=== PATIENT | male | born 1945 | race African-American/Black ===

== ENCOUNTER 2018-05-26 12:02 | Emergency (ER) | payer MEDICARE ==
[2018-05-26] MEDS ORDERED: Bupivacaine 0.25% 10 ML VIAL ONE (12:37)
[2018-05-26] MEDS ORDERED: Adacel (T-DAP) 0.5 ML VIAL ONE (12:37)
[2018-05-26] MEDS ORDERED: Lidocaine 1% (PF) 30 ML VIAL ONE ×2 (12:37→13:38)
[2018-05-26] MEDS ORDERED: Lidocaine 1% PF 5 ML VIAL ONE (13:36)
[2018-05-26] MEDS ORDERED: Bacitracin Zinc 1 Packet ONE (13:58)
--- NOTE | 2018-05-26 14:41 | RAD ---
RIGHT 4TH FINGER 3 VIEWS: HISTORY: A 73-year-old male with a history of deformity, injury, patient caught finger in a folding chair. FINDINGS: There is soft tissue and bony avulsion of the distal 4th finger including irregular fracture of the d istal aspect of the distal phalanx. Significant arthrosis changes. IMPRESSION: Extensive soft tissue and bony avulsion injury of the distal aspect of the distal phalanx of the 4th finger. The tuft of the distal phalanx of the 4th finger is no longer present. POS: QUINCY
--- NOTE | 2018-05-26 15:32 | OP ---
DATE OF PROCEDURE: 05/26/2018 PLACE OF PROCEDURE: [facility] Emergency Room. INDICATIONS: Mr. Flores is a 73-year-old male who has rheumatoid arthritis. He was sitting in a fuchs den chair. He was getting up and the wooden chair pinched and partially amputated the tip of the rig ht ring finger, took the entire nail off, it took almost half of the nail bed off and broke the dista l phalanx. DESCRIPTION OF PROCEDURE: A digital block was performed using 1% lidocaine plain at the base of the ring finger. The ring finger and the open wound was cleansed with Betadine and then sterile saline. The patient had a mostly oblique injury across the mid portion of the nail. Scissors were used to m jose francisco the nail bed and underlying distal phalanx more transverse. The wound was then sequentially clos ed using 3-0 Rapide. Excess tissue was removed as needed and the wound was completely closed. Steri le dressing was applied. The patient has been taking antibiotics, because of a wound that he has had chronically on the right ankle, so this will cover him for any possible infection on the ring finger . Also, I wrote a prescription for Tramadol 50 mg 1-2 every 6 hours as needed for pain, #60 with 1 r efill. Follow up in my office next Monday, which is 6 days.
== END 2018-05-26 14:13 | disposition home or self-care (01) ==
LOC: ERS 12:02
DX: S68.124A Partial traumatic metacarpophalangeal amputation of right ring finger, initial encounter (principal); M10.9 Gout, unspecified; I10 Essential (primary) hypertension; W23.0XXA Caught, crushed, jammed, or pinched between moving objects, initial encounter
CPT/HCPCS: 12001; 90471; 90715; J2001; S0020

== ENCOUNTER 2018-05-26 16:23 | Emergency (ER) | payer MEDICARE | END 2018-05-26 17:31 | disposition home or self-care (01) | LOC: ERS 16:23 | DX: S61.214D Laceration without foreign body of right ring finger without damage to nail, subsequent encounter (principal); I10 Essential (primary) hypertension | CPT/HCPCS: 99282 ==

== ENCOUNTER 2018-07-24 06:37 | Inpatient (IN) | payer MEDICARE ==
[2018-07-24] MEDS ORDERED: Neomycin-Polymyxin 1 ML AMP ONE ×2 (06:43→09:21)
[2018-07-24 07:27] LABS: Hemoglobin 9.1 g/dL (14.0-18.0); Mean Corpuscular HGB CONC 30.4 g/dL (32.0-36.0); Mean Corpuscular Hemoglobin 26.4 pg (27.0-31.0); Mean Corpuscular Volume 86.6 fL (78.0-98.0); Mean Platelet Volume 8.2 fL (7.4-10.4); Platelet Count 331 thou/uL (130-400); RBC Distribution Width 17.1 % (11.5-14.5); Red Blood Cell (RBC) Count 3.46 mill/uL (4.70-6.10); White Blood Cell (WBC) Count 10.4 thou/uL (4.8-10.8)
[2018-07-24 07:46] LABS: Anion Gap 14 mmol/L (10-20); BUN (Urea Nitrogen) 15 mg/dL (8.4-25.7); Calc. Creatinine Clearance 80 mL/min (70-130); Calcium 9.3 mg/dL (7.8-10.44); Carbon Dioxide 24 mmol/L (23-31); Chloride 100 mmol/L (98-107); Estimated GFR-MDRD Greater than 90; Glucose 89 mg/dL (83-110); Potassium 4.3 mmol/L (3.5-5.1); Sodium 134 mmol/L (136-145)
[2018-07-24] MEDS ORDERED: Fentanyl 100 MCG/2 ML VIAL ONE ×4 (07:48→12:00)
[2018-07-24] MEDS ORDERED: CEFAZOLIN 2 GM/50 ML BAG ONE (07:50)
[2018-07-24] MEDS ORDERED: Bupivacaine 0.25% HCL 30 ML VIAL ONE (09:11)
[2018-07-24] MEDS ORDERED: Promethazine HCl 25 MG/ML VIAL IM PRN (10:11)
[2018-07-24] MEDS ORDERED: Promethazine HCl 25 MG/ML VIAL SLOW IVP PRN (10:11)
[2018-07-24] MEDS ORDERED: Ondansetron HCl/PF 4 MG/2 ML Vial IVP PRN (10:11)
[2018-07-24] MEDS ORDERED: Promethazine HCl 25 MG/ML VIAL ONE (10:38)
--- NOTE | 2018-07-24 10:42 | OP ---
DATE OF PROCEDURE: 07/24/2018 PREOPERATIVE DIAGNOSES: Osteomyelitis of the second and third metatarsals and phalanges of the right foot. POSTOPERATIVE DIAGNOSES: Osteomyelitis of the second and third metatarsals and phalanges of the righ t foot. PROCEDURE: Second and third ray amputations of the right foot. SURGEON: Dr. Jensen Cedillo ANESTHESIA: General. TECHNIQUE: The patient was taken to the operating room and placed in supine position. Satisfactory general anesthesia was performed. The right foot, ankle, and leg were sterilely prepped and draped i n usual fashion. After elevating the right lower extremity, tourniquet on the right calf was raised to 250 mmHg. A longitudinal incision was made between the second and third metatarsals up to the seco nd and third toes which had significant purulence and necrotic tissue. Incision was made around to t he lateral base of the great toe and then extended down in the plantar aspect of the foot the same wa y, the incision was made around the lateral aspect of the third toe. Sharp dissection was made down to the second and third metatarsals to the base of the second and third metatarsals. Micro oscillati ng saw was used to cut the second and third metatarsals and the soft tissue was sharply incised and t he third and second rays were excised. The remaining tissue both medially and laterally and deep had a good border, did not appear to have any necrotic tissue. This wound was then copiously irrigated with antibiotic solution using the high speed pit shoveler and then was loosely closed using #1 Prolene in interrupted vertical mattress sutures. A sterile dressing was applied. Tourniquet was released. The patient was awakened, extubated, and transferred to recovery room in stable condition. ESTIMATED BLOOD LOSS: None. COMPLICATIONS: None. TOURNIQUET TIME: 38 minutes. Deep cultures were obtained and sent for Gram stain, culture and sensitivity. We will get Infectious Disease involved as far as appropriate antibiotics.
[2018-07-24] MEDS ORDERED: Morphine 2 MG/ML SYRINGE SLOW IVP PRN (10:47)
[2018-07-24] MEDS ORDERED: Morphine 4 MG/ML VIAL SLOW IVP PRN (10:48)
[2018-07-24] MEDS ORDERED: HYDROcodone/Acetaminophen 10/325 mg Tablet PO PRN (10:48)
[2018-07-24] MEDS ORDERED: Piperacillin/Tazobactam 3.375 GM in Sodium Chloride 0.9% 100 ML IVPB SCH (12:00)
[2018-07-24] MEDS ORDERED: Labetalol HCl 100 MG/20 ML VIAL ONE (12:08)
[2018-07-24] MEDS ORDERED: Labetalol HCl 100 MG/20 ML VIAL SLOW IVP PRN (13:17)
[2018-07-24] MEDS ORDERED: Sodium Chloride 0.9% 1,000 ML IV SCH (13:30)
[2018-07-24] MEDS ORDERED: traMADol HCl 50 MG TAB PO PRN (13:31)
--- NOTE | 2018-07-24 13:41 | EKG ---
Test Reason : PREOP Blood Pressure : / mmHG Vent. Rate : 064 BPM Atrial Rate : 064 BPM P-R Int : 186 ms QRS Dur : 082 ms QT Int : 408 ms P-R-T Axes : 072 -32 -07 degrees QTc Int : 420 ms Normal sinus rhythm Left axis deviation Nonspecific ST abnormality Borderline EKG When compared with ECG of 20-SEP-2008 13:06, No significant change was found Confirmed by DR. Norman SHEIKH ([id number]) on 07/24/2018 1:41:22 PM Referred By: GRANT Confirmed By:DR. Norman SHEIKH
[2018-07-24] MEDS: Vancomycin HCl 1.25 GM in Sodium Chloride 0.9% 250 ML 250 ML IVPB SCH (13:51)
[2018-07-24] MEDS ORDERED: Glycopyrrolate 0.2 MG/ML 5 ML SYRINGE ONE (14:59)
[2018-07-24] MEDS ORDERED: Lidocaine 1% PF 5 ML VIAL ONE (14:59)
[2018-07-24] MEDS ORDERED: PROPOFOL 200 MG/20 ML VIAL ONE (14:59)
[2018-07-24] MEDS ORDERED: Ondansetron PF 4 MG/2 ML Vial ONE (14:59)
[2018-07-24] MEDS: Piperacillin/Tazobactam 3.375 GM in Sodium Chloride 0.9% 100 ML IVPB SCH ×2 (15:34→19:20)
[2018-07-24] MEDS: Sodium Chloride 0.9% 1,000 ML IV SCH ×2 (15:35→19:21)
[2018-07-24 17:30] VITALS: BMI 21.9
[2018-07-24] MEDS: Atorvastatin Calcium 10 MG TAB PO SCH (19:20)
--- NOTE | 2018-07-25 00:32 | CON ---
DATE OF CONSULTATION: 07/24/2018 HISTORY OF PRESENT ILLNESS: Mr. Flores is known to me from prior admission to [facility]. A 73-year-old gentleman with history of hypertension, rheumatoid arthritis, severe ankylos is of multiple toes and fingers and peripheral vascular disease with prior angioplasty whom I saw in 03/2018 when he presented with right foot pain and chronic ulcerations with drainage. Amputation was offered and patient declined it. Imaging studies then showed foot x-rays with lateral displacement of the first metatarsophalangeal joint and lateral distal displacement of the first metatarsal joint. Severe degenerative changes and hyperextension deformity of second through fifth metatarsophalangea l joints. MRI of the foot showed osteomyelitis of second metatarsal head and neck and proximal osteo myelitis of the third proximal phalanx base with reactive osteoarthritis of the third metatarsal head and neck. The assessment was longstanding rheumatoid arthritis with severe ankylosis and evidence o f osteomyelitis, right plantar foot aspect with multiple areas of involvement. The patient declined surgical intervention and therefore he had protracted antimicrobial therapy. After that I saw him in the office and discontinued the PICC line and put him on suppressive antimicrobial therapy. Evident ly, now he has presented with persistence of inflammatory changes and Dr. Cedillo performed a surgica l procedure. The operative report has been reviewed and incision was made around the lateral base of the great toe extended down in the plantar aspect of foot. Same way incision made around the latera l aspect of the third toe. Sharp dissection made down the second and third metatarsals to the base o f the second and third metatarsals. The second and third metatarsals were cut and soft tissues were sharply incised. The third and second rays were excised. Remainder of tissue appeared healthy and t he wound was irrigated. Cultures were taken. Previous cultures are noted below. Currently, patient is in good mood. He is feeling dry throat or dry mouth. He is feeling constipated and feels some a bdominal cramps. He likely needs to have a bowel movement. He is having some difficulty with urinat ion as well. PAST MEDICAL HISTORY: History of hypertension, rheumatoid arthritis, osteomyelitis of right foot, pe ripheral vascular disease. PAST SURGICAL HISTORY: Angioplasty of lower extremities few years prior. FAMILY HISTORY: Rheumatoid arthritis. SOCIAL HISTORY: Former smoker, quit drinking many years ago. MEDICATIONS: Had been on meropenem in the past and been discontinued. CURRENT MEDICATIONS: Include acetaminophen, aspirin, atorvastatin, Plavix, metoprolol, Zosyn, and va ncomycin. PHYSICAL EXAMINATION: VITAL SIGNS: T-max 97.2. Other vital signs with elevation in systolic at 190 and diastolic 92. Ple asant, awake, alert and oriented. The foot is wrapped. We did not remove the dressing at this time. The patient has a peripheral IV access and does not have a Collins catheter. HEENT: Ocular movements conjugate. Oral cavity with numerous missing teeth. NECK: Supple, no jugular vein distention. LUNGS: Symmetric air entry without crackles or wheezing. HEART: S1, S2, regular rate without murmurs. ABDOMEN: Soft, mildly distended, no tenderness, no bladder distention. MUSCULOSKELETAL: Patient has multiple areas of ankylosis and joint deformity in both hands and feet associated with his rheumatoid arthritis. NEUROLOGIC: Cognitive function appears to be intact and neurologic examination is nonfocal. LABORATORY DATA: White cell count 10.4, hemoglobin 9.1, platelets 331, sodium 134, creatinine 0.75. Microbiology is pending. Previous microbiology from the medication in March showed Pseudomonas aerug inosa, Myroides species, Staphylococcus epidermides. Myroides was sensitive, Pseudomonas quinolone s ensitive, Staph epi was methicillin sensitive. ASSESSMENT AND PLAN: Rheumatoid arthritis with ankylosis and chronic osteomyelitis of right foot, no w with second and third ray amputations by Dr. Cedillo: The patient has some peripheral vascular dis ease and will be an area of concern. May need to repeat the vascular studies pending clinical progre ss. Continue Zosyn and vancomycin. Monitor results of cultures and results of the pathology for danile lim of clearance assessment. Hopefully, discharge on oral antimicrobial therapy depending on the res ults above.
[2018-07-25] MEDS: Piperacillin/Tazobactam 3.375 GM in Sodium Chloride 0.9% 100 ML IVPB SCH ×4 (01:45→20:38)
[2018-07-25] MEDS: Sodium Chloride 0.9% 1,000 ML IV SCH ×2 (01:48→18:07)
[2018-07-25] MEDS: Clopidogrel Bisulfate 75 MG TAB PO SCH (08:40)
[2018-07-25] MEDS: Ferrous Sulfate 325 MG TAB PO SCH (08:40)
[2018-07-25] MEDS: Multivitamin W/ Minerals 1 TAB PO SCH (08:40)
[2018-07-25] MEDS: Vancomycin HCl 1.25 GM in Sodium Chloride 0.9% 250 ML 250 ML IVPB SCH (11:41)
--- NOTE | 2018-07-25 13:24 | PRG ---
DATE OF SERVICE: 07/25/2018 SUBJECTIVE: Mr. Flores is 1 day status post second and third ray amputations of the right foot. The patient has good pain control. He was unable to empty his bladder and he had in and out catheteriza tion last night. A Collins catheter was placed this morning. The patient states he would like to try to have it taken out, so he can urinate himself. The patient has been afebrile. Vital signs have been stable except for his blood pressure has been a little elevated. His last one was 181/76. The dressing was changed. The incision on the dorsal and plantar aspect of the right foot is in good condition. There is a huge amount of swelling. No active drainage. There was drainage on the dres sing as would be expected. Cultures thus far shows Pseudomonas species. He has on Gram stain moderate gram negative rods and fe w gram positive coccobacilli. We will remove the Collins this afternoon to see if the patient can respond. If not, then we can do in and out catheterization. If he is unable to get this under control, then we will consult Urology. Dr. Solorzano will take care of any antibiotics. We are waiting for further culture reports and sensitiv ities.
[2018-07-25] MEDS: Tamsulosin HCl 0.4 MG CAP PO SCH (18:30)
--- NOTE | 2018-07-25 18:53 | PRG ---
DATE OF SERVICE: 07/25/2018 SUBJECTIVE: Mr. Flores without much pain, developed bladder retention and had to have in and out catheterization and then a Collins catheter. No abdominal pain. PHYSICAL EXAMINATION: VITAL SIGNS: Normal. HEART: S1, S2, regular rate. ABDOMEN: Soft, not distended. LABORATORY DATA: White cell count 10.4, hemoglobin 9.1, creatinine 0.75. Pseudomonas retrieved from the foot swab from the sample pending susceptibility studies. Pathology showed ischemic ulceration. Skin and soft tissue margins viable, acute osteomyelitis. ASSESSMENT AND DISCUSSION: Rheumatoid arthritis, ankylosis and chronic osteo of right foot, status post second and third ray amputations. It looks like the same organisms that had been isolated previously. We will wait for the final results and then discharge on hopefully oral antimicrobial therapy for a few weeks. Otherwise, we will need access. SADAF
[2018-07-25] MEDS: Atorvastatin Calcium 10 MG TAB PO SCH (20:37)
[2018-07-26] MEDS: Piperacillin/Tazobactam 3.375 GM in Sodium Chloride 0.9% 100 ML IVPB SCH ×4 (02:28→20:44)
[2018-07-26] MEDS: Sodium Chloride 0.9% 1,000 ML IV SCH ×3 (02:28→22:08)
[2018-07-26] MEDS: Multivitamin W/ Minerals 1 TAB PO SCH (09:23)
[2018-07-26] MEDS: Ferrous Sulfate 325 MG TAB PO SCH (09:23)
[2018-07-26] MEDS: Clopidogrel Bisulfate 75 MG TAB PO SCH (09:23)
[2018-07-26 11:09] LABS: Vancomycin, Trough 6.6 ug/mL
--- NOTE | 2018-07-26 11:41 | PRG ---
DATE OF SERVICE: 07/26/2018 Mr. Flores is 2 days status post 2nd and 3rd ray amputation of the right foot. The patient reports h e has no pain in the right foot. He is still unable to void and required indwelling catheter. The patient has been afebrile. Vital signs have been stable. We will consult Urology for his urinary retention. Dr. Solorzano is waiting for sensitivities on the cul ture which shows Pseudomonas species. We will continue with IV antibiotics while he is in the hospit al. Gradually increase his activities with therapy.
[2018-07-26] MEDS: Vancomycin HCl 1.25 GM in Sodium Chloride 0.9% 250 ML 250 ML IVPB SCH (12:38)
[2018-07-26 16:09] LABS: Bilirubin Negative (Negative); Blood, Urine Large (Negative); Clarity CLEAR (Clear); Glucose, Urine (Dipstick) Negative (Negative); Leukocyte Moderate (Negative); Nitrite Negative (Negative); Protein, Urine (Dipstick) Negative (Neg-Trace); Specific Gravity, Urine 1.008 (1.002-1.036); Urobilinogen 0.2 mg/dL (0.2-1.0)
[2018-07-26 16:12] LABS: Bacteria/HPF None Seen HPF (None Seen); Hyaline Casts/LPF 0-3 HYALINE CAST LPF (0-3 Hyaline); RBC/HPF GREATER THAN 50-TNTC HPF (0-3); Squamous Epithelial 0-3 HPF (0-3)
[2018-07-26] MEDS: Tamsulosin HCl 0.4 MG CAP PO SCH (20:44)
[2018-07-26] MEDS: Atorvastatin Calcium 10 MG TAB PO SCH (20:44)
[2018-07-26] MEDS: Vancomycin HCl 1 GM in Premix Bag 1 BAG IVPB SCH (23:55)
[2018-07-27] MEDS ORDERED: Tamsulosin HCl 0.4 MG CAP PO SCH (00:15)
[2018-07-27] MEDS: Piperacillin/Tazobactam 3.375 GM in Sodium Chloride 0.9% 100 ML IVPB SCH ×4 (03:59→20:08)
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
[2018-07-27] MEDS: Ferrous Sulfate 325 MG TAB PO SCH (08:20)
[2018-07-27] MEDS: Multivitamin W/ Minerals 1 TAB PO SCH (08:21)
[2018-07-27] MEDS: Tamsulosin HCl 0.4 MG CAP PO SCH ×2 (08:21→20:08)
[2018-07-27] MEDS: Clopidogrel Bisulfate 75 MG TAB PO SCH (08:21)
[2018-07-27] MEDS: Sodium Chloride 0.9% 1,000 ML IV SCH ×2 (08:37→20:17)
[2018-07-27] MEDS: Vancomycin HCl 1 GM in Premix Bag 1 BAG IVPB SCH (11:25)
--- NOTE | 2018-07-27 16:07 | PRG ---
DATE OF SERVICE: 07/27/2018 SUBJECTIVE: Mr. Flores states that his right foot is doing very well. He has no pain in the foot. He has been able to get up and eat. He is still having problems with urinary retention and urologis t was kind enough to see the patient and start him on Flomax and is going to try to get that problem taken care of. OBJECTIVE: The patient is afebrile. Vital signs are all stable. The dressing was changed and the incision on the dorsum and plantar aspect of the right foot still lo oks very good. There is a huge amount of swelling. There is no erythema. There is no active draina ge. Culture results show Pseudomonas but sensitivities are still not back yet. The patient worked with the urologist as far as urinary retention, Dr. Solorzano will take care of any an tibiotics when his sensitivities return. We will see if the patient is able to be discharged on p.o. antibiotics.
[2018-07-27] MEDS: Atorvastatin Calcium 10 MG TAB PO SCH (20:08)
[2018-07-27] MEDS ORDERED: traMADol HCl 50 MG TAB PO PRN (23:58)
[2018-07-28] MEDS ORDERED: traMADol HCl 50 MG TAB PO PRN (00:07)
[2018-07-28] MEDS: Piperacillin/Tazobactam 3.375 GM in Sodium Chloride 0.9% 100 ML IVPB SCH ×3 (03:40→15:24)
[2018-07-28] MEDS: Sodium Chloride 0.9% 1,000 ML IV SCH (05:52)
[2018-07-28 07:24] VITALS: BP 199/97; TEMP 97.6
[2018-07-28] MEDS: Clopidogrel Bisulfate 75 MG TAB PO SCH (09:00)
[2018-07-28] MEDS: Ferrous Sulfate 325 MG TAB PO SCH (09:00)
[2018-07-28] MEDS: Tamsulosin HCl 0.4 MG CAP PO SCH (09:00)
[2018-07-28] MEDS: Multivitamin W/ Minerals 1 TAB PO SCH (09:00)
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
[2018-07-28] MEDS ORDERED: Ciprofloxacin 500 MG TAB PO SCH (20:00)
== END 2018-07-28 16:53 | disposition home or self-care (01) | DRG 476 ==
LOC: SDC 06:37 → T4-A 10:10
PROVIDERS: ADMIT Orthopaedic Surgery; ATTEND Orthopaedic Surgery
PROC: 0Y6M0ZB Detachment at Right Foot, Partial 2nd Ray, Open Approach (ICD-10-PCS; principal; 2018-07-24)
PROC: 0Y6M0ZC Detachment at Right Foot, Partial 3rd Ray, Open Approach (ICD-10-PCS; 2018-07-24)
DX: M86.671 Other chronic osteomyelitis, right ankle and foot (principal); M24.674 Ankylosis, right foot; M06.9 Rheumatoid arthritis, unspecified; I70.291 Other atherosclerosis of native arteries of extremities, right leg; B96.5 Pseudomonas (aeruginosa) (mallei) (pseudomallei) as the cause of diseases classified elsewhere; I10 Essential (primary) hypertension; R33.0 Drug induced retention of urine; N41.9 Inflammatory disease of prostate, unspecified; N40.1 Benign prostatic hyperplasia with lower urinary tract symptoms; R33.8 Other retention of urine; Z87.891 Personal history of nicotine dependence; Z79.2 Long term (current) use of antibiotics; Z79.02 Long term (current) use of antithrombotics/antiplatelets; Z79.82 Long term (current) use of aspirin
CPT/HCPCS: 36415; 36416; 80048; 80202; 81001; 84153; 85027; 87070; 87077; 87186; 87205; 88305; 88311; 93005; 93010; G8978-GP-CK; G8979-GP-CI; J2001; J2405; J2543; J2550; J2704; J3010; J3370; J7050; S0020